=== PATIENT | male | born 1955 | race Hispanic/Latino ===

== ENCOUNTER → 2022-09-03 | Outpatient (CLI) | payer OTHER | END | disposition home or self-care (01) | LOC: RAH 09:57 | PROVIDERS: ATTEND Internal Medicine | DX: R10.12 Left upper quadrant pain (principal) | CPT/HCPCS: 76700 ==

== ENCOUNTER 2023-11-11 10:03 | Inpatient (IN) | payer OTHER ==
[~2023-11-11] VITALS: Ht 172.7 cm; Wt 83.2 kg
[2023-11-11 10:23] LABS: BASOPHILS # (AUTO) 0.02 K/uL (0.00-0.20); BASOPHILS % (AUTO) 0.2 % (0.0-5.0); HEMATOCRIT 46.2 % (42-54); IMMATURE GRANULOCYTE ABSOLUTE 0.04 K/uL (0-1); LYMPHOCYTES # (AUTO) 1.1 K/uL (1.0-4.8); MEAN CORPUSCULAR HEMOGLOBIN 29.5 pg (27.0-33.0); MEAN CORPUSCULAR HGB CONC 33.5 g/dL (32.0-36.0); MEAN CORPUSCULAR VOLUME 87.8 fL (79-99); MONOCYTES % (AUTO) 11.2 % (3.0-13.0); NEUTROPHILS # (AUTO) 6.9 K/uL (1.8-7.7); NEUTROPHILS % (AUTO) 76.2 % (40.0-77.0); PLATELET COUNT (AUTO) 158 K/uL (130-400); RED BLOOD CELL COUNT(AUTO) 5.26 MIL/uL (4.50-6.20); RED CELL DISTRIBUTION WIDTH 13.4 % (11.0-15.5); WHITE BLOOD COUNT (AUTO) 9.1 K/uL (4.8-10.8)
[2023-11-11 10:32] LABS: POTASSIUM 3.6 mmol/L (3.5-5.1)
[2023-11-11 10:55] LABS: ALBUMIN 3.9 g/dL (3.5-5.0); BILIRUBIN,TOTAL 0.8 mg/dL (0.2-1.0); TOTAL PROTEIN, SERUM 7.7 g/dL (6.0-8.3)
[2023-11-11] MEDS ORDERED: CEFTRIAXONE 2GM VIAL IVPB ONE (11:00)
[2023-11-11] MEDS ORDERED: 0.9%NACL 1000ML 1,000 ML IV ONE (11:00)
[2023-11-11] MEDS ORDERED: GLIP10TA9 PO (14:19)
[2023-11-11] MEDS ORDERED: FLUT16H NASAL (14:19)
[2023-11-11] MEDS ORDERED: LINA145C PO (14:19)
[2023-11-11] MEDS ORDERED: LORA10TA7 PO (14:19)
[2023-11-11] MEDS ORDERED: CHOL500051 PO (14:19)
[2023-11-11] MEDS ORDERED: MONT-39 PO (14:19)
[2023-11-11] MEDS ORDERED: METF-445 PO (14:19)
[2023-11-11] MEDS ORDERED: OMEP40CA21 PO (14:19)
[2023-11-11] MEDS ORDERED: APIX2.5T PO (14:19)
[2023-11-11] MEDS ORDERED: LISI1TAB53 PO (14:19)
[2023-11-11] MEDS ORDERED: ROSU5TAB12 PO (14:19)
[2023-11-11] MEDS ORDERED: HYDRALAZINE 20MG/ML VIAL IV PRN (14:30)
[2023-11-11] MEDS ORDERED: THIAMINE HCL 100 MG/ML 2ML VIAL IVP ONE (14:30)
[2023-11-11] MEDS ORDERED: FAMOTIDINE 20MG VIAL IV SCH (14:30)
[2023-11-11] MEDS ORDERED: IPRATROPIUM 0.5 MG/2.5 ML INH IH PRN ×2 (14:30→15:00)
[2023-11-11] MEDS ORDERED: KCL 20 MEQ ERTAB PO ONE (14:30)
[2023-11-11] MEDS ORDERED: FOLIC ACID 5 MG/ML VIAL IV ONE ×2 (14:30→16:30)
[2023-11-11] MEDS ORDERED: ACETAMINOPHEN 500 MG TABLET PO PRN (14:30)
[2023-11-11 14:36] LABS: THYROID STIMULATING HORMONE 0.56 uIU/mL (0.36-3.74)
[2023-11-11 14:48] VITALS: PULSE 91; RESP 20
[2023-11-11] MEDS: BUDESONIDE 0.5 MG/2 ML INH IH SCH ×2 (14:52→20:01)
[2023-11-11 15:00] LABS: INR 1.06 (0.85-1.15); PROTHROMBIN TIME 12.2 SEC (9.6-11.6)
[2023-11-11 15:01] LABS: PARTIAL THROMBOPLASTIN TIME 33.3 SEC (26.3-35.5)
[2023-11-11 15:04] VITALS: PULSE 91; RESP 20; O2SAT 98
[2023-11-11 15:08] LABS: SARS-CoV-2, RNA, NAAT NEGATIVE SARS CoV-2 (NEGATIVE)
[2023-11-11 15:16] LABS: INFLUENZA TYPE B Negative For Type B (NEGATIVE)
[2023-11-11 15:42] LABS: INFLUENZA TYPE A Positive For Type A (NEGATIVE)
[2023-11-11] MEDS: PANTOPRAZOLE 40 MG/VIAL IVP SCH (16:13)
[2023-11-11] MEDS: OSELTAMIVIR PHOSPHATE 75 MG CAP PO SCH (16:13)
[2023-11-11] MEDS: DOXYCYCLINE 100MG+NS 250ML 250 ML IV SCH (16:13)
[2023-11-11] MEDS: 0.9%NACL 1000ML 1,000 ML IV SCH (16:14)
[2023-11-11] MEDS: FLUTICASONE PROPIONATE 50MCG/SPRAY 16 GM BOTTLE EN SCH (16:25)
[2023-11-11] MEDS: INSULIN HUMULIN R 100 UNIT/ML 3ML SQ SCH ×2 (16:30→22:19)
[2023-11-11] MEDS: MAGNESIUM 2GM PREMIX 50ML 50 ML IV SCH ×2 (19:57→20:01)
[2023-11-11 20:01] VITALS: PULSE 89; RESP 20; O2SAT 95
[2023-11-11 20:21] LABS: APPEARANCE,URINE CLEAR (CLEAR); BILIRUBIN,URINE NEGATIVE (NEGATIVE); COLOR,URINE YELLOW (YELLOW); GLUCOSE, URINE (UA) >=1000 mg/dL (NEGATIVE); KETONES,URINE 40 mg/dL (NEGATIVE); LEUKOCYTE ESTERASE ,URINE 25 Leu/uL (NEGATIVE); NITRATE,URINE NEGATIVE (NEGATIVE); PH,URINE 5.5 (5.0-8.0); PROTEIN,URINE 70 mg/dL (NEGATIVE); UROBILINOGEN,URINE 0.2 mg/dL (0.2-1.0)
[2023-11-11 20:25] LABS: ADD UA MICROSCOPIC YES
[2023-11-11 20:28] LABS: BACTERIA,URINE RARE /HPF (None Seen); MUCUS,URINE RARE LPF (None Seen); SQUAMOUS EPITHELIAL CELL,UR RARE /HPF (0-2)
[2023-11-11] MEDS: INSULIN GLARGINE 100 UNITS/ML 10 ML VIAL SQ SCH (22:19)
[2023-11-11] MEDS: APIXABAN 2.5 MG TABLET PO SCH (22:20)
[2023-11-12] VITALS (9 sets, daily range): BP systolic 109–140; BP diastolic 60–72; PULSE 76–84; RESP 16–21; O2SAT 94
[2023-11-12] MEDS: DOXYCYCLINE 100MG+NS 250ML 250 ML IV SCH ×3 (01:34→20:39)
[2023-11-12] MEDS: FLUTICASONE PROPIONATE 50MCG/SPRAY 16 GM BOTTLE EN SCH (01:39)
[2023-11-12] MEDS: 0.9%NACL 1000ML 1,000 ML IV SCH ×2 (03:50→15:11)
[2023-11-12] MEDS: OSELTAMIVIR PHOSPHATE 75 MG CAP PO SCH ×3 (04:34→20:39)
[2023-11-12 06:21] LABS: BASOPHILS # (AUTO) 0.01 K/uL (0.00-0.20); BASOPHILS % (AUTO) 0.2 % (0.0-5.0); EOSINOPHILS # (AUTO) 0.05 K/uL (0.00-0.70); IMMATURE GRANULOCYTE ABSOLUTE 0.02 K/uL (0-1); LYMPHOCYTES # (AUTO) 1.1 K/uL (1.0-4.8); LYMPHOCYTES % (AUTO) 23.3 % (21.0-51.0); MEAN CORPUSCULAR HGB CONC 33.2 g/dL (32.0-36.0); MEAN CORPUSCULAR VOLUME 87.6 fL (79-99); MONOCYTES # (AUTO) 0.6 K/uL (0.1-1.0); MONOCYTES % (AUTO) 12.8 % (3.0-13.0); NEUTROPHILS % (AUTO) 62.3 % (40.0-77.0); PLATELET COUNT (AUTO) 142 K/uL (130-400); RED BLOOD CELL COUNT(AUTO) 4.34 MIL/uL (4.50-6.20); RED CELL DISTRIBUTION WIDTH 13.9 % (11.0-15.5); WHITE BLOOD COUNT (AUTO) 4.9 K/uL (4.8-10.8)
[2023-11-12 06:44] LABS: ALBUMIN 2.8 g/dL (3.5-5.0); BILIRUBIN,TOTAL 0.5 mg/dL (0.2-1.0); CREATININE 0.7 mg/dL (0.5-1.5); MAGNESIUM 1.8 mg/dL (1.80-2.40); POTASSIUM 3.9 mmol/L (3.5-5.1); TOTAL PROTEIN, SERUM 6.5 g/dL (6.0-8.3)
[2023-11-12] MEDS: BUDESONIDE 0.5 MG/2 ML INH IH SCH (07:11)
[2023-11-12] MEDS: INSULIN HUMULIN R 100 UNIT/ML 3ML SQ SCH ×4 (07:30→21:29)
[2023-11-12] MEDS: CEFTRIAXONE 2GM VIAL IVPB SCH (07:43)
[2023-11-12] MEDS: PANTOPRAZOLE 40 MG/VIAL IVP SCH (07:43)
[2023-11-12] MEDS: MONTELUKAST SODIUM 10 MG TAB PO SCH (07:44)
[2023-11-12] MEDS: (Cholecalciferol (Vitamin D3) (Vitamin D3) 125 MCG) PO SCH (07:44)
[2023-11-12] MEDS: LISINOPRIL 20 MG TABLET PO SCH (07:44)
[2023-11-12] MEDS: APIXABAN 2.5 MG TABLET PO SCH ×2 (07:44→20:38)
[2023-11-12] MEDS: (Linaclotide (Linzess) 145 MCG) PO SCH (07:44)
[2023-11-12] MEDS: LORATADINE 10 MG TABLET PO SCH (07:47)
[2023-11-12] MEDS: INSULIN GLARGINE 100 UNITS/ML 10 ML VIAL SQ SCH (21:28)
[2023-11-13] VITALS (8 sets, daily range): BP systolic 122–139; BP diastolic 65–83; PULSE 71–82; RESP 16–20; O2SAT 95–97
[2023-11-13] MEDS: 0.9%NACL 1000ML 1,000 ML IV SCH ×2 (01:20→15:18)
[2023-11-13 04:12] LABS: BASOPHILS # (AUTO) 0.01 K/uL (0.00-0.20); BASOPHILS % (AUTO) 0.2 % (0.0-5.0); EOSINOPHILS # (AUTO) 0.05 K/uL (0.00-0.70); EOSINOPHILS % (AUTO) 1.2 % (0.0-8.0); HEMATOCRIT 38.3 % (42-54); IMMATURE GRANULOCYTE ABSOLUTE 0.01 K/uL (0-1); LYMPHOCYTES # (AUTO) 1.2 K/uL (1.0-4.8); LYMPHOCYTES % (AUTO) 28.6 % (21.0-51.0); MEAN CORPUSCULAR HEMOGLOBIN 29.5 pg (27.0-33.0); MEAN CORPUSCULAR HGB CONC 33.2 g/dL (32.0-36.0); MEAN CORPUSCULAR VOLUME 89.1 fL (79-99); MONOCYTES # (AUTO) 0.5 K/uL (0.1-1.0); MONOCYTES % (AUTO) 12.2 % (3.0-13.0); NEUTROPHILS # (AUTO) 2.4 K/uL (1.8-7.7); NEUTROPHILS % (AUTO) 57.6 % (40.0-77.0); PLATELET COUNT (AUTO) 143 K/uL (130-400); RED CELL DISTRIBUTION WIDTH 13.6 % (11.0-15.5); WHITE BLOOD COUNT (AUTO) 4.1 K/uL (4.8-10.8)
[2023-11-13 04:29] LABS: ALBUMIN 2.7 g/dL (3.5-5.0); BILIRUBIN,TOTAL 0.4 mg/dL (0.2-1.0); CREATININE 0.7 mg/dL (0.5-1.5); POTASSIUM 3.7 mmol/L (3.5-5.1); TOTAL PROTEIN, SERUM 6.4 g/dL (6.0-8.3)
[2023-11-13] MEDS: INSULIN HUMULIN R 100 UNIT/ML 3ML SQ SCH ×3 (06:01→16:30)
[2023-11-13] MEDS: BUDESONIDE 0.5 MG/2 ML INH IH SCH (06:51)
[2023-11-13] MEDS: DOXYCYCLINE 100MG+NS 250ML 250 ML IV SCH (08:50)
[2023-11-13] MEDS: CEFTRIAXONE 2GM VIAL IVPB SCH (08:50)
[2023-11-13] MEDS: LISINOPRIL 20 MG TABLET PO SCH (08:50)
[2023-11-13] MEDS: OSELTAMIVIR PHOSPHATE 75 MG CAP PO SCH (08:51)
[2023-11-13] MEDS: LORATADINE 10 MG TABLET PO SCH (08:51)
[2023-11-13] MEDS: MONTELUKAST SODIUM 10 MG TAB PO SCH (08:51)
[2023-11-13] MEDS: APIXABAN 2.5 MG TABLET PO SCH (08:51)
[2023-11-13] MEDS: (Linaclotide (Linzess) 145 MCG) PO SCH (09:00)
[2023-11-13] MEDS ORDERED: PANTOPRAZOLE 40 MG/VIAL IVP SCH (09:00)
[2023-11-13] MEDS: (Cholecalciferol (Vitamin D3) (Vitamin D3) 125 MCG) PO SCH (09:00)
[2023-11-13] MEDS: FLUTICASONE PROPIONATE 50MCG/SPRAY 16 GM BOTTLE EN SCH (15:18)
== END 2023-11-13 19:00 | disposition short-term general hospital (02) | DRG 551 ==
LOC: EDH 10:03 → EDHIP 13:57 → 4BH 11-12 00:10
PROVIDERS: ADMIT Hospitalist; ATTEND Hospitalist
DX: M47.816 Spondylosis without myelopathy or radiculopathy, lumbar region (principal); E43 Unspecified severe protein-calorie malnutrition; I82.531 Chronic embolism and thrombosis of right popliteal vein; M62.82 Rhabdomyolysis; E87.20 Acidosis, unspecified; N39.0 Urinary tract infection, site not specified; J11.1 Influenza due to unidentified influenza virus with other respiratory manifestations; E11.9 Type 2 diabetes mellitus without complications; I10 Essential (primary) hypertension; E78.00 Pure hypercholesterolemia, unspecified; Z20.822 Contact with and (suspected) exposure to COVID-19; E86.0 Dehydration; M47.812 Spondylosis without myelopathy or radiculopathy, cervical region; E86.1 Hypovolemia; J32.9 Chronic sinusitis, unspecified; J20.9 Acute bronchitis, unspecified; E83.42 Hypomagnesemia; G31.9 Degenerative disease of nervous system, unspecified; J32.2 Chronic ethmoidal sinusitis; Z83.3 Family history of diabetes mellitus; Z79.01 Long term (current) use of anticoagulants; Z79.899 Other long term (current) drug therapy; Z86.711 Personal history of pulmonary embolism
CPT/HCPCS: 36415; 70450; 70486; 71045; 72125; 72148; 72170; 73552; 76770; 80053; 81001; 82306; 82550; 82948; 83036; 83605; 83690; 83735; 84145; 84153; 84439; 84443; 84481; 84484; 85025; 85610; 85651; 85730; 86140; 87040; 87071; 87088; 87205; 87635; 87804; 93005; 93306; 93880; 93970; 94640; C9113; G0378; J0696; J3411; J3475; J3490; J7030

== ENCOUNTER 2024-06-29 07:52 | Emergency (ER) | payer OTHER ==
[~2024-06-29] VITALS: Ht 172.7 cm; Wt 83.0 kg
[~2024-06-29 07:52] MED LIST: APIX2.5T PO; CHOL500051 PO; FLUT16H NASAL; LINA145C PO; LORA10TA7 PO; MONT-39 PO
[2024-06-29 08:00] VITALS: O2SAT 100
[2024-06-29 10:13] LABS: BASOPHILS # (AUTO) 0.02 K/uL (0.00-0.20); BASOPHILS % (AUTO) 0.3 % (0.0-5.0); EOSINOPHILS # (AUTO) 0.03 K/uL (0.00-0.70); EOSINOPHILS % (AUTO) 0.4 % (0.0-8.0); HEMATOCRIT 42.6 % (42-54); IMMATURE GRANULOCYTE ABSOLUTE 0.03 K/uL (0-1); LYMPHOCYTES # (AUTO) 1.1 K/uL (1.0-4.8); LYMPHOCYTES % (AUTO) 16.2 % (21.0-51.0); MEAN CORPUSCULAR HEMOGLOBIN 28.4 pg (27.0-33.0); MEAN CORPUSCULAR HGB CONC 32.9 g/dL (32.0-36.0); MEAN CORPUSCULAR VOLUME 86.4 fL (79-99); MONOCYTES # (AUTO) 0.9 K/uL (0.1-1.0); MONOCYTES % (AUTO) 13.3 % (3.0-13.0); NEUTROPHILS # (AUTO) 4.8 K/uL (1.8-7.7); NEUTROPHILS % (AUTO) 69.4 % (40.0-77.0); PLATELET COUNT (AUTO) 171 K/uL (130-400); RED BLOOD CELL COUNT(AUTO) 4.93 MIL/uL (4.50-6.20); RED CELL DISTRIBUTION WIDTH 13.3 % (11.0-15.5); WHITE BLOOD COUNT (AUTO) 6.9 K/uL (4.8-10.8)
[2024-06-29 10:19] LABS: CREATININE 0.9 mg/dL (0.5-1.3); POTASSIUM 4.2 mmol/L (3.5-5.1)
[2024-06-29 10:22] LABS: APPEARANCE,URINE CLEAR (CLEAR); BILIRUBIN,URINE NEGATIVE (NEGATIVE); COLOR,URINE LIGHT-YELLOW (YELLOW); GLUCOSE, URINE (UA) >=1000 mg/dL (NEGATIVE); KETONES,URINE 60 mg/dL (NEGATIVE); LEUKOCYTE ESTERASE ,URINE NEGATIVE Leu/uL (NEGATIVE); NITRATE,URINE NEGATIVE (NEGATIVE); OCCULT BLOOD,URINE NEGATIVE (NEGATIVE); PH,URINE 5.5 (5.0-8.0); PROTEIN,URINE NEGATIVE (NEGATIVE); UROBILINOGEN,URINE 0.2 mg/dL (0.2-1.0)
[2024-06-29 10:28] LABS: ADD UA MICROSCOPIC YES
[2024-06-29 10:33] LABS: THYROID STIMULATING HORMONE 0.55 uIU/mL (0.36-3.74)
[2024-06-29 10:33] LABS: SQUAMOUS EPITHELIAL CELL,UR RARE /HPF (0-2)
[2024-06-29] MEDS ORDERED: GADOTERATE MEGLUMINE 10 MMOL/20 ML VIAL IV ONE (16:57)
[2024-06-29 17:00] VITALS: BP 127/62; PULSE 99; RESP 17
[2024-06-29] MEDS ORDERED: LORAZEPAM 2 MG/ML 1 ML VIAL IM PRN (17:30)
[2024-06-29] MEDS: BENZONATATE 100 MG CAPSULE PO ONE (17:32)
[2024-06-29] MEDS ORDERED: BENZ-39 PO (17:41)
== END 2024-06-29 18:02 | disposition home or self-care (01) ==
LOC: EDH 07:52
DX: R53.1 Weakness (principal); E11.9 Type 2 diabetes mellitus without complications; I10 Essential (primary) hypertension; Z79.899 Other long term (current) drug therapy
CPT/HCPCS: 99285; 72141; 84443; 80048; 85025; 82948; 81001; 36415; A9575; 72156

== ENCOUNTER → 2025-06-10 | Outpatient (CLI) | payer OTHER, MEDICAID ==
[~2025-06-10] MED LIST changes: +BENZ-39 PO
--- NOTE | 2025-06-11 07:06 | HMCIMG ---
EXAMINATION: ULTRASOUND SCREENING OF THE ABDOMINAL AORTA WITH COLOR DOPPLER. CLINICAL HISTORY: Screening. COMPARISON: No prior studies. TECHNIQUE: Real-time grayscale ultrasound images of the aorta. In addition, color Doppler is medically necessary to perform in order to evaluate vascularity and blood flow. FINDINGS: The proximal, mid, and distal aspects of the abdominal aorta are normal in caliber measuring 2.1 x 2.0 x 2.1 cm, 1.7 x 1.6 x 1.6 cm, and 1.2 x 1.2 x 1.4 cm in the craniocaudal, AP and transverse dimensions respectively. There is no evidence of plaques in the aorta. The velocity in the aorta is 64 cm/s. The right common iliac artery is normal in caliber measuring 1.2 x 1.1 x 1.2 cm (PSV is 84 cm/s). The left common iliac artery is normal in caliber measuring 1.1 x 1.2 x 1.3 cm (PSV is 73 cm/s). IMPRESSION: Mild intimal thickening in the abdominal aorta. No aneurysm. /Farber
== END | disposition home or self-care (01) ==
LOC: RAH 07:53
PROVIDERS: ATTEND Student in an Organized Health Care Education/Training Program
DX: Z13.6 Encounter for screening for cardiovascular disorders (principal)
CPT/HCPCS: 76775